=== PATIENT | male | born 1950 | race Caucasian/White ===

== ENCOUNTER 2018-01-08 07:32 | Inpatient (IN) ==
--- NOTE | 2018-01-08 13:32 | P.HP ---
History of Present Illness Primary Care Physician: UNKNOWN History of Present Illness: 67-year-old white male being admitted for shortness of breath and acute hypoxic respiratory failure. Patient reports being in his usual state of health until about a few days ago he began experiencing recurrent bouts of shortness of breath. His initial bout did not respond well to his handheld inhaler. He had been working outside in felt his shortness of breath at that moment. He stopped to rest with ease of his symptoms as well. However symptoms had come back and he eventually picked up his medication for his nebulizer and started taking that again. Due to the persistence of his intermittent symptoms he decided come to the emergency department. Denies any nausea vomiting or chills. Reports having only cough induced chest pain. reports some clear to slightly yellowish productive sputum that is thick. In the emergency department he was noted to have low saturations in the 80s on room air. D-dimer was slightly elevated, CT angiogram was performed which was negative for embolism but did show small subcentimeter bilateral upper lobe nodules. Blood work was otherwise unremarkable. Review of Systems All other systems reviewed negative except as stated in HPI PMFSH - History History Provided By: Patient - Medical History Medical History: Medical History (Last Reviewed 01/08/18 @ 13:30 by Kavin Donahue MD) COPD (chronic obstructive pulmonary disease) Hyperlipidemia - Surgical History Surgical History: Surgical History (Last Reviewed 01/08/18 @ 13:30 by Kavin Donahue MD) Hx of hernia repair Hx of tonsillectomy - Family History Family History: Family History (Last Updated 01/08/18 @ 13:30 by Kavin Donahue MD) Other Stroke - Social History I have reviewed the patient's Social History: Yes - Tobacco History Smoking Status: Current every day smoker - Alcohol History How Often Do You Have a Drink Containing Alcohol: Monthly or less - Substance Use History Substance History: No History of Abuse Medications and Allergies Active Medications: Active Medications Methylprednisolone Sodium Succinate (Solumedrol Inj) 125 mg IV.PUSH ONCE ONE Stop: 01/08/18 18:01 Methylprednisolone Sodium Succinate (Solumedrol Inj) 60 mg IV.PUSH Q12HR KENY Sodium Chloride (Ns Flush) 2 ml IV.FLUSH PRN PRN PRN Reason: FLUSH AFTER USING IV ACCESS Sodium Chloride (Ns Flush) 2 ml IV.FLUSH BID KENY Allergies Allergy/AdvReac Type Severity Reaction Status Date / Time No Known Allergies Allergy Verified 01/08/18 07:47 Home Medications Medication Instructions Recorded Confirmed Type albuterol sulfate 2 puff INHALATION Q4-6H PRN 01/08/18 01/08/18 History albuterol sulfate 2.5 mg INHALATION QID PRN 01/08/18 01/08/18 History fluticasone-vilanterol [Breo 1 inh INHALATION DAILY 01/08/18 01/08/18 History Ellipta] meloxicam 10 mg PO DAILY PRN 01/08/18 01/08/18 History simvastatin 40 mg PO QPM 01/08/18 01/08/18 History Exam Narrative: VS: afebrile GENERAL: Well-nourished elderly male, no acute distress SKIN: Warm and dry. EYES: No scleral icterus. No injection or drainage. ENT: No nasal bleeding or discharge. Mucous membranes pink and moist. CARDIOVASCULAR: Regular rate and rhythm. no murmurs RESPIRATORY: No accessory muscle use. Clear to auscultation. Breath sounds equal bilaterally. GASTROINTESTINAL: Abdomen soft, non-tender, nondistended. Extremities: No clubbing, cyanosis, or edema. No obvious deformities. MUSCULOSKELETAL: adequate muscle bulk and tone for age and habitus NEUROLOGICAL: Awake and alert. No obvious cranial nerve deficits. No facial droop nor slurred speech noted. PSYCHIATRIC: Appropriate mood and affect; insight and judgment normal. Caprini VTE Risk Assessment Caprini VTE Risk Assessment: Moderate/High Risk (score >= 2) Caprini Risk Assessment Model: Point Value = 1 Point Value = 2 Point Value = 3 Point Value = 5 Age 41-60 Minor surgery BMI > 25 kg/m2 Swollen legs Varicose veins or History of unexplained or recurrent spontaneous Oral contraceptives or hormone replacement Sepsis (< 1 month) Serious lung disease, including pneumonia (< 1 month) Abnormal pulmonary function Acute myocardial infarction Congestive heart failure (< 1 month) History of inflammatory bowel disease Medical patient at bed rest Age 61-74 Arthroscopic surgery Major open surgery (> 45 min) Laparoscopic surgery (> 45 min) Malignancy Confined to bed (> 72 hours) Immobilizing plaster cast Central venous access Age >= 75 History of VTE Family history of VTE Factor V Leiden Prothrombin [id number] Lupus anticoagulant Anticardiolipin antibodies Elevated serum homocysteine Heparin-induced thrombocytopenia Other congenital or acquired thrombophilia Stroke (< 1 month) Elective arthroplasty Hip, pelvis, or leg fracture Acute spinal cord injury (< 1 month) Prophylaxis Regimen: Total Risk Factor Score Risk Level Prophylaxis Regimen 0-1 Low Early ambulation 2 Moderate Order ONE of the following: *Sequential Compression Device (SCD) *Heparin 5000 units SQ BID 3-4 Higher Order ONE of the following medications: *Heparin 5000 units SQ TID *Enoxaparin/Lovenox 40 mg SQ daily (WT < 150 kg, CrCl > 30 mL/min) *Enoxaparin/Lovenox 30 mg SQ daily (WT < 150 kg, CrCl > 10-29 mL/min) *Enoxaparin/Lovenox 30 mg SQ BID (WT < 150 kg, CrCl > 30 mL/min) AND/OR *Sequential Compression Device (SCD) 5 or more Highest Order ONE of the following medications: *Heparin 5000 units SQ TID (Preferred with Epidurals) *Enoxaparin/Lovenox 40 mg SQ daily (WT < 150 kg, CrCl > 30 mL/min) *Enoxaparin/Lovenox 30 mg SQ daily (WT < 150 kg, CrCl > 10-29 mL/min) *Enoxaparin/Lovenox 30 mg SQ BID (WT < 150 kg, CrCl > 30 mL/min) AND *Sequential Compression Device (SCD) Assessment and Plan - Plan 67-year-old white male being admitted for acute hypoxic respiratory failure and shortness of breath Shortness of breath Acute hypoxic respiratory failure COPD exacerbation; CTA is negative for PE Continue steroids and bronchodilators -Oxygen supplementation as needed, wean -Continue home Brio Bilateral subcentimeter pulmonary upper lobe nodules Follow-up outpatient, repeat CT scan in 6 months Hyperlipidemia Continue home simvastatin lovenox
[2018-01-08] MEDS ORDERED: MethylPREDNISolone Sod Succinate Inj 125 MG/2 ML Vial IV.PUSH ONE (18:00)
[2018-01-08] MEDS: Benzonatate 100 MG Capsule PO PRN (22:00)
[2018-01-09] MEDS ORDERED: MethylPREDNISolone Sod Succinate Inj 125 MG/2 ML Vial IV.PUSH SCH ×2 (06:00→06:30)
[2018-01-09] MEDS: Benzonatate 100 MG Capsule PO PRN (06:14)
[2018-01-09] MEDS ORDERED: Enoxaparin Inj 30 MG/0.3 ML Syringe SQ SCH (09:00)
--- NOTE | 2018-01-09 13:13 | P.PN ---
Subjective Interval history: Nursing denies any acute changes overnight. Patient says he feels like he has much more capacity today. Says he. Much only gets short of breath now when he has his coughing spells. Physical Exam Vital signs: Vital Signs 01/08/18 13:41 01/08/18 14:10 01/08/18 14:37 Temperature 97.7 F Pulse Rate 79 84 Respiratory Rate 20 16 Blood Pressure 129/63 Pulse Oximetry 92 L 92 L 92 L 01/08/18 16:00 01/08/18 19:16 01/08/18 21:30 Temperature 97.6 F 99 F Pulse Rate 84 89 94 H Respiratory Rate 16 18 20 Blood Pressure 130/65 119/59 L Pulse Oximetry 92 L 95 91 L 01/09/18 00:00 01/09/18 06:21 01/09/18 08:00 Temperature 98.4 F 96.5 F L Pulse Rate 85 84 72 Respiratory Rate 20 18 20 Blood Pressure 132/73 126/64 Pulse Oximetry 92 L 90 L 01/09/18 09:04 01/09/18 11:45 01/09/18 12:00 Temperature 97.6 F Pulse Rate 88 87 Respiratory Rate 18 20 Blood Pressure 116/60 Pulse Oximetry 93 L 90 L 90 L Intake & Output 01/08/18 01/09/18 01/09/18 18:59 06:59 18:59 Intake Total 480 / 480 360 / 360 Balance 480 / 480 360 / 360 Weight 92.533 kg 91.4 kg Intake: Oral 480 / 480 360 / 360 Other: # Voids 2 2 Date of Last Bowel Movement 01/07/18 01/08/18 01/08/18 # Bowel Movements 0 Weight On Admission 92.533 kg Narrative: Much less wheezing than yesterday Good aeration otherwise in the bases No acute distress No lower extremity edema Ambulating well around the nursing station with minimal fatigue Assessment and Plan - Plan 67-year-old white male being admitted for acute hypoxic respiratory failure and shortness of breath Shortness of breath Acute hypoxic respiratory failure COPD exacerbation; CTA is negative for PE Continue steroids and bronchodilators -Oxygen supplementation as needed, wean -Continue home Brio Bilateral subcentimeter pulmonary upper lobe nodules Follow-up outpatient, repeat CT scan in 6 months Hyperlipidemia Continue home simvastatin lovenox Discharge summary: Patient was admitted with acute hypoxic respiratory failure, started on steroids and bronchodilators and oxygen supplementation. CTA was neg for PE. Respiratory status had stabilized. Patient ultimately failed walk test requiring 2 L of oxygen. Patient had met maximum benefit from hospitalization is clinically stable for discharge. To f/u with PCP for subcm lung nodules.
[2018-01-09 15:09] VITALS: BP 134/65; PULSE 77; RESP 20; TEMP 97.3; O2SAT 91
== END 2018-01-09 17:43 | disposition home or self-care (01) ==
LOC: PH3 07:32 → PHEDDLT 07:32 → OBSVTOIN 13:20
PROVIDERS: ADMIT Hospitalist; ATTEND Hospitalist